=== PATIENT | male | born 1985 | race African-American/Black ===

== ENCOUNTER 2021-03-20 15:39 | Emergency (ER) | payer MEDICAID ==
[~2021-03-20] VITALS: Ht 182.9 cm; Wt 77.1 kg
--- NOTE | 2021-03-20 16:00 | NUR ---
SENT HERE FROM URGENT CARE DUE TO AN ABNORMAL EKG READING,FEELING WEAK WITH TINGLING OF HANDS SINCE 3 DAYS AGO AFTER A NEAR SYNCOPAL EPISODE. PATIENT A/OX4, BREATHING EVEN AND UNLABORED, NOS OB NOTED. NEEDS ATTENDED.
[2021-03-20 16:28] LABS: BASOPHILS # (AUTO) 0.1 K/uL (0.0-0.2); BASOPHILS % (AUTO) 0.9 % (0.0-2.0); EOSINOPHILS % (AUTO) 3.8 % (0.0-6.0); HEMATOCRIT 45 % (39-51); HEMOGLOBIN 15.4 g/dL (13.5-17.5); LYMPHOCYTES # (AUTO) 1.9 K/uL (0.8-4.8); LYMPHOCYTES % (AUTO) 28.2 % (20.0-44.0); MEAN CORPUSCULAR HGB CONC 34 g/dl (31.0-36.0); MEAN CORPUSCULAR VOLUME 93 fL (80-96); MONOCYTES # (AUTO) 0.7 K/uL (0.1-1.30); MONOCYTES % (AUTO) 10.4 % (2.0-12.0); NEUTROPHILS # (AUTO) 3.8 K/uL (1.8-8.9); NEUTROPHILS % (AUTO) 56.7 % (43.0-81.0); PLATELET COUNT (AUTO) 179 K/uL (150-450); RED BLOOD CELL COUNT(AUTO) 4.81 MIL/uL (4.5-6.0); WHITE BLOOD COUNT (AUTO) 6.7 K/uL (4.3-11.0)
[2021-03-20] MEDS: IV NS 0.9% 1,000 ML BAG IV ONE (16:35)
[2021-03-20 16:36] LABS: CALCIUM, SERUM 8.7 mg/dL (8.5-10.1); CREATININE 1.2 mg/dL (0.6-1.3); POTASSIUM 4.2 mmol/L (3.5-5.1)
--- NOTE | 2021-03-20 16:37 | NUR ---
PATIENT TAKEN TO CT.
[2021-03-20 16:41] LABS: ALBUMIN 3.9 g/dL (3.4-5.0); BILIRUBIN,DIRECT 0.3 mg/dL (0.0-0.2); BILIRUBIN,TOTAL 1.6 mg/dL (0.2-1.0); TOTAL PROTEIN, SERUM 7.5 g/dL (6.4-8.2)
[2021-03-20 18:19] VITALS: BP 116/73
--- NOTE | 2021-03-20 18:19 | NUR ---
Patient a/ox4, breathing even and unlabored. No sob noted. IV removed. Catheter intact and site benign. Pressure and 4x4 applied to site. No bleeding noted.Patient discharged to home in stable condition. Written and verbal after care instructions given. Patient verbalizes understanding of instruction.
== END 2021-03-20 18:20 | disposition home or self-care (01) ==
LOC: ER 15:49
DX: R55 Syncope and collapse (principal); B34.9 Viral infection, unspecified
CPT/HCPCS: 70450; 71045; 80048; 80076; 85025; 93005; 96360; 99285; J7030